=== PATIENT | male | born 1945 | race Caucasian/White ===

== ENCOUNTER 2020-01-18 04:58 | Observation (INO) | payer MEDICARE, SELFPAY ==
[2020-01-18] VITALS (9 sets, daily range): BP systolic 110–152; BP diastolic 71–89; PULSE 60–78; RESP 12–16; TEMP 36.2–36.6; O2SAT 97–98; BMI 33.7; BMI 32.9
--- NOTE | 2020-01-18 05:03 | RAD_ITS ---
STUDY: X-RAY CHEST REASON FOR EXAM: Male, 74 years old. PT STATES NOT FEELING WELL SINCE YESTERDAY BUT WOKE UP AT 0400 TODAY SWEATING, SOB AND WITH CP TECHNIQUE: Frontal view COMPARISON: 02/03/2016 FINDINGS: Pacemaker leads are in proper position. The lungs are clear and expanded. There is no demonstrated pleural abnormality. Normal size heart. Normal mediastinum and manish. Normal visualized pulmonary arteries. Normal visualized aortic arch and descending thoracic aorta. Normal visualized thoracic spine. Normal visualized ribs, clavicles, and shoulders. There is no demonstrated abnormality of the visualized soft tissue structures of the upper abdomen. RAD/Chest 1 View (Portable) IMPRESSION: Normal x-ray examination of the chest. Electronically Signed: Kendrick Rehman MD at 5:30 EST , Service support ,
--- NOTE | 2020-01-18 05:03 | EKG12_ITS ---
Test Reason : CP Blood Pressure : / mmHG Vent. Rate : 071 BPM Atrial Rate : 071 BPM P-R Int : 296 ms QRS Dur : 152 ms QT Int : 414 ms P-R-T Axes : 057 -53 111 degrees QTc Int : 449 ms Atrial-paced rhythm with prolonged AV conduction Left axis deviation Non-specific intra-ventricular conduction block Abnormal ECG Confirmed by KAYCEE GARCIA, JEISON ([id number]), purchase request editor JANET MARCELINO ([id number]) on 01/18/2020 1:11:45 PM Referred By: RACHEL Confirmed By:NELY BENOIT MD
--- NOTE | 2020-01-18 05:06 | ED.DCSUM_ITS ---
History of Present Illness Chief Complaint: Chest Pain Informant: Patient Onset: Today Context: Gradual Onset Timing: Continuous Current Severity: Moderate Maximum Severity: Moderate Narrative: The patient is a 74-year-old male with medical history significant for atrial fibrillation, coronary vascular disease with 1 stent, AICD pacemaker implantation that presents to the emergency department with chest pain and shortness of breath. Patient states that the symptoms began yesterday. He states he just did not feel well all day. He really did not have chest pain, b ut just states he felt generally fatigued. He states that he woke about 4 in the morning. He was diaphoretic, nauseated and had heaviness in his chest. He states that he also felt short of breath. He did take sublingual nitro which seemed to help his pain, but never fully relieved it. He states his defibrillator has not fired. He denies any fever. He denies any chills. Is not had cough. He denies orthopnea. The patient was recently hospitalized for hyperkalemia, but states that within a day, his potassium had normalized. Prior similar symptoms: Yes Recent Illness/Hospitalization: No Past Medical History - Allergies and Home Meds Allergies/Adverse Reactions: Allergies mercury (elemental) Allergy (Verified 01/18/20 05:02) Other Primary Care Physician: Care Physician,No Primary [Primary Care Provider] - Prior records reviewed: Yes Past Medical History: - - Coronary vascular disease with 1 stent, atrial fibrillation, hypertension, hyperlipidemia Surgical History: angioplasty Smoking Status: Former smoker Review of Systems General: Denies: Chills, Fever, Sweats Eyes: Denies: Visual changes - bilaterally, Diplopia ENT: Denies: Rhinorrhea, Sore throat Cardiovascular: Reports: Chest pain. Denies: Palpitations Respiratory: Reports: Dyspnea. Denies: Cough, Dyspnea on exertion Gastrointestinal: Reports: Nausea. Denies: Abdominal pain, Vomiting, Diarrhea, Melena, Hematochezia Genitourinary: Denies: Dysuria, Hematuria, Frequency Musculoskeletal: Denies: Back pain, Extremity Pain Skin: Denies: Rash, Wounds Neurological: Denies: Headache, Weakness, Numbness Physical Exam Vital Signs/Narrative: Vital Signs Temp Pulse Resp BP Pulse Ox 01/18/20 04:58 97.2 F L 70 15 152/88 H 98 Inital Vital Signs reviewed: Yes General: Well nourished, Well developed, No Acute Distress Head: Normocephalic, Atraumatic Eyes: Perrl, EOMI ENT: Moist mucous membranes, No rhinorrhea Neck: Supple, Nontender Cardiovascular: Regular rate, Regular rhythm, No murmurs Respiratory: No distress, CTA bilaterally, Chest nontender Abdomen: Soft, Nontender, Nondistended, Normal bowel sounds Back: Nontender, Normal Inspection Extremities: Nontender, No edema Skin: Normal color, No rash Neurological: Alert, Oriented x3, Cranial nerves II-XII grossly intact, Normal Strength, Normal Sensation Psychological: Normal affect, Normal Mood Diagnostic/Tx/Re-eval Clinical Impression(s) from Imaging Studies Chest X-Ray 01/18/20 05:03 IMPRESSION: Normal x-ray examination of the chest. Electronically Signed: Kendrick Rehman MD at 5:30 EST , Service support , Abnormal Lab Results 01/18/20 01/18/20 01/18/20 05:05 05:05 05:05 WBC 7.5 RBC 5.07 Hgb 14.6 Hct 44.8 MCV 88.4 MCH 28.8 MCHC 32.6 RDW Std Deviation 42.9 RDW Coeff of Keron 13.2 Plt Count 226 MPV 9.4 Immature Gran % (Auto) 0.500 Neut % (Auto) 51.8 Lymph % (Auto) 33.7 [place] % (Auto) 10.2 H Eos % (Auto) 3.1 Baso % (Auto) 0.7 Absolute Neuts (auto) 3.9 Absolute Lymphs (auto) 2.54 Nucleated RBC % 0 PT 26.1 H INR 2.4 Sodium 140 Potassium 4.3 Chloride 106 Carbon Dioxide 29.0 Anion Gap 5 BUN 23 H Creatinine 1.36 H Estim Creat Clear Calc 56.24 Est GFR (MDRD) Af Amer 66 Est GFR (MDRD) Non-Af 55 L BUN/Creatinine Ratio 16.9 Glucose 118 H Calcium 9.0 Magnesium Troponin I < 0.015 01/18/20 05:05 WBC RBC Hgb Hct MCV MCH MCHC RDW Std Deviation RDW Coeff of Keron Plt Count MPV Immature Gran % (Auto) Neut % (Auto) Lymph % (Auto) [place] % (Auto) Eos % (Auto) Baso % (Auto) Absolute Neuts (auto) Absolute Lymphs (auto) Nucleated RBC % PT INR Sodium Potassium Chloride Carbon Dioxide Anion Gap BUN Creatinine Estim Creat Clear Calc Est GFR (MDRD) Af Amer Est GFR (MDRD) Non-Af BUN/Creatinine Ratio Glucose Calcium Magnesium 1.9 Troponin I - Rhythm Strip Rhythm Strip: Paced Rate: 65 Ectopy: None - EKG Initial EKG Interpretation: Paced, Non-Specific ST Changes Prior: Unchanged - Medical Decision Making Patient presents with generalized malaise, and then chest heaviness that came on rather acutely. He states he was diaphoretic and nauseated. On arrival, he rates the pain is a 5. He was given 1 sublingual nitro. He is basically pain- free at this time. His EKG demonstrates a paced rhythm without evidence of acute ischemia. Chest x-ray shows no significant volume overload. Initial cardiac enzymes are negative. Given the patient's significant cardiac history, I do feel the most prudent plan of care will be observation given his chest pain. He is comfortable with this plan of care. Patient was discussed with the hospitalist. Impression 1. Chest pain 2. History of atrial fibrillation 3. History of cardiovascular disease ED Disposition - Plan for ED Patient: Referrals: Care Physician,No Primary [Primary Care Provider] -
[2020-01-18 05:10] LABS: Absolute Lymphocyte Count 2.54 X10^3/uL (0.83-4.51); Absolute Neutrophil Count 3.9 X10^3/uL (2.0-7.7); Basophil# 0.05 X10^3/uL; Basophil% 0.7 % (0-1); Eosinophil# 0.23 X10^3/uL; Eosinophils% 3.1 % (0-5); Hematocrit 44.8 % (40-54); Hemoglobin 14.6 g/dL (13.0-16.5); Lymphocyte # 2.54 X10^3/ul (4.0); Lymphocyte % 33.7 % (19-41); Mean Corp Hgb Conc 32.6 g/dL (32-36); Mean Corpuscular Hgb 28.8 pg (27.0-32.0); Mean Corpuscular Volume 88.4 fL (80-94); Mean Platelet Vol. 9.4 fl (6.2-12.0); Monocyte# 0.77 X10^3/uL; Monocyte% 10.2 % (0-10); NRBC Flagged by Analyzer 0 % (0-5); Neutrophil # 3.91 X10^3/uL (2.7-7.7); Neutrophil % 51.8 % (47-70); Platelet Count 226 K/mm3 (150-450); RBC Distribution Width CV 13.2 % (11.6-14.6); RBC Distribution Width SD 42.9 fl (35.1-43.9); Red Blood Count 5.07 M/mm3 (4.6-6.2); White Blood Count 7.5 K/mm3 (4.4-11.0)
[2020-01-18] MEDS: Aspirin 81 MG TAB.CHEW 324 MG PO (05:12)
[2020-01-18] MEDS: Nitroglycerin SL (ED/IMG/CATH) 0.4 MG TABLET SUBLINGUAL (05:12)
[2020-01-18 05:19] LABS: International Normalized Ratio 2.4; Prothrombin Time (Protime)PT. 26.1 SECONDS (11.7-14.9)
[2020-01-18 05:27] LABS: Magnesium 1.9 mg/dL (1.6-2.6)
[2020-01-18 05:29] LABS: Anion Gap 5 (5-15); BUN 23 mg/dL (7-18); BUN/Creat Ratio 16.9 RATIO (10-20); Chloride 106 mmol/L (98-107); Creatinine, Serum 1.36 mg/dL (0.70-1.30); EST Glomerular Filtration Rate 55 mL/min (>60); Est Glom Filt Rate - Afr Amer 66 mL/min (>60); Estimated Creatinine Clearance 56.24 ml/min; Glucose 118 mg/dL (74-106); Potassium 4.3 mmol/L (3.5-5.1); Sodium Level 140 mmol/L (136-145)
--- NOTE | 2020-01-18 05:41 | PCM.HP.STD ---
Problem List (1) Chest pain Status: Acute Qualifiers: Chest pain type: unspecified Qualified Code(s): R07.9 - Chest pain, unspecified (2) CAD (coronary artery disease) Status: Chronic Qualifiers: Coronary Disease-Associated Artery/Lesion type: unspecified vessel or lesion type [place] vs. transplanted heart: unspecified whether [place] or transplanted heart Associated angina: angina presence unspecified Qualified Code(s): I25.10 - Atherosclerotic heart disease of [place] coronary artery without angina pectoris (3) History of coronary artery stent placement Status: Chronic (4) Hypertension Status: Chronic Qualifiers: Hypertension type: essential hypertension Qualified Code(s): I10 - Essential (primary) hypertension (5) Hyperlipidemia Status: Chronic Qualifiers: Hyperlipidemia type: unspecified Qualified Code(s): E78.5 - Hyperlipidemia, unspecified (6) Former tobacco use Status: Chronic (7) History of venous thromboembolism Status: Chronic (8) PAF (paroxysmal atrial fibrillation) Status: Chronic (9) Factor V Leiden mutation Status: Chronic (10) Ventricular mural thrombus Status: Chronic History of Present Illness Date of Admission: 01/18/20 Chief Complaint: Chest pain The patient is a 74 y/o M w/ PMHx: Factor V Leiden deficiency, Hx Ventricular thrombus, CKD stage III, CAD s/p PCI x 1 2006, CHF Unclear type s/p pacemaker status, Hx SVT/VT s/p AICD placement, PAF, Obesity, Hypothyroidism who presents to the [facility] ED on 01/18/20 with history of malaise, fatigue the day prior with onset chest heaviness described initially at onset at 8 out of 10 now down to 2 out of 10 upon evaluation with associated at initial onset upon awakening diaphoresis, dyspnea at 4 am with self administration NG without complete improvement prompting ED presentation for evaluation. He denied having his AICD fire and noted the last evaluation was on 01/10/20 with 1 episode of VT otherwise unremarkable. Patient notes that he is normally active, a back and often will shaver although he does state he has been less active recently. Work-up in the ED included T 97.2, heart rate 70, BP 152/80, respiratory rate 16, 98% on room air, unremarkable CBC, INR 2.4, BMP with BUN/creatinine 23/1.36, glucose 118, magnesium 1.9, troponin less than 0.015, chest x-ray with no acute cardiopulmonary findings, EKG paced with nonspecific ST changes. Past Medical History Past Medical History (Chronic Problems): Chronic Problems CAD (coronary artery disease) (Chronic) History of coronary artery stent placement (Chronic) Hypertension (Chronic) Hyperlipidemia (Chronic) Former tobacco use (Chronic) History of venous thromboembolism (Chronic) PAF (paroxysmal atrial fibrillation) (Chronic) Factor V Leiden mutation (Chronic) Ventricular mural thrombus (Chronic) Allergies mercury (elemental) Allergy (Verified 01/18/20 05:02) Other Home Medications: Ambulatory Orders Medication Instructions Recorded Cholecalciferol (Vitamin D3) 1,200 unit PO BID 02/03/16 [Vitamin D3] Clopidogrel Bisulfate [Plavix] 75 mg PO DAILY 02/03/16 Levothyroxine [Synthroid] 100 mcg PO QHS 02/03/16 Lisinopril [Zestril] 20 mg PO BID 02/03/16 Metoprolol Tartrate [Lopressor 50 mg PO QHS 02/03/16 (Beta Kriss)] Multivitamin [Daily Multiple 1 each PO DAILY 02/03/16 Vitamin] [place]-3 Fatty Acids/Fish Oil 1 each PO DAILY 02/03/16 [[place] 3 Fish Oil Softgel] Rosuvastatin Calcium [Crestor] 20 mg PO QHS 02/03/16 Warfarin [Coumadin ([facility])] 4 mg PO SUTUTHSA 02/03/16 Warfarin [Coumadin ([facility])] 6 mg PO MOWEFR 02/03/16 Dofetilide 500 mcg PO BID 01/18/20 Metoprolol Tartrate 25 mg PO BREAKFAST 01/18/20 Surgical History: - - AICD, pacemaker, PCI x1. Psychiatric History: No pertinent psych hx Lives: Spouse/ Significant Other Smoking Status: Former smoker - Patient quit cigarette tobacco usage approximately 30 years prior with prior to this 1 pack/day since he had been in service. Tobacco Use: Non-smoker Alcohol: Occasional Drugs: None - *Family History Maternal History Items: Diabetes Paternal History Items: Cancer - Father with history of pancreatic cancer. Sibling History Items: Cancer - Patient notes that his youngest brother at age 46 secondary to significant metastatic cancer, unclear type. Review of Systems Constitutional: Reports: Malaise, Weakness, Fatigue. Denies: Anorexia, Chills, Fever, Weight Change HEENT: Denies: Head Aches, Sinus Congestion, Sinus Drainage Cardiovascular: Reports: Chest Pain, Chest Pressure. Denies: Chest Tightness, Light Headedness, Orthopnea, Palpitations, Syncope Respiratory: Reports: Shortness of Breath. Denies: Cough, Shortness of breath at rest, Sputum production Gastrointestinal: Denies: Abdominal Pain, Nausea, Vomiting Genitourinary: Denies: Dysuria Musculoskeletal: Reports: Back Pain, Joint Pain. Denies: Joint Tenderness Skin: Denies: Rash, Wounds Neurological: Denies: Numbness, Tingling, Focal weakness Psychiatric: Denies: Anxiety, Depression, Homicidal Ideations, Suicidal Ideations Hematologic/ Lymphatic: Reports: Easy Bruising, Easy Bleeding VTE Information - Inpt Only VTE Present on Admission: No VTE Mechan Device Prophylaxis: SCD's VTE Pharm Prophylaxis ordered?: No Reason prophylaxis not ordered:: Medical Contraindication - We will continue patient Coumadin with INR trending. Patient Problems: Active and Suspected Problems Chest pain (Acute) Subjective: Patient seated upright in the ED bed, mildly fatigued appearance, notes chest pain improving, 2 of 10 currently. Objective: Physical Examination: General: awake, alert, oriented x 3 and cooperative, seated upright in the ED bed, no acute distress, notes chest pain improving, currently 2 out of 10. Skin: normal color, turgor, no icterus, cyanosis. HEENT: AT/NC, EOMI, PERRLA, MMM, no carotid bruits or JVD noted. Lungs: CTA bilaterally, moderate effort, moderate decrease BL bases, no rales, ronchi or wheezing. Heart: Regular rate and rhythm; no gallop, rub audible, left upper chest device. Abdomen: soft, NTTP, ND, normal BS, no HSM. Extremities: no cyanosis, clubbing, or edema. Neurological: patient awake, alert, oriented x 3; cognitive function intact; pupils equally reactive to light and accomodation; cranial nerves II-XII grossly normal, moving all 4 extremities, no focal deficits, strength mildly global decrease secondary to acute presentation, improving. Psychiatric: affect appears normal, no acute evidence of depressive or anxiety feelings. - Physical Exam Vitals/I&O's: Vital Signs Temp Pulse Resp BP Pulse Ox 97.2 F L 62 15 146/89 H 97 01/18/20 04:58 01/18/20 05:12 01/18/20 04:58 01/18/20 05:12 01/18/20 05:18 Oxygen Delivery Method Room Air Weight: 263 lb 3.711 oz Body Mass Index (BMI) 33.7 Laboratory Results 01/18/20 05:05: WBC 7.5, RBC 5.07, Hgb 14.6, Hct 44.8, MCV 88.4, MCH 28.8, MCHC 32.6, RDW Std Deviation 42.9, RDW Coeff of Keron 13.2, Plt Count 226, MPV 9.4, Immature Gran % (Auto) 0.500, Neut % (Auto) 51.8, Lymph % (Auto) 33.7, [place] % (Auto) 10.2 H, Eos % (Auto) 3.1, Baso % (Auto) 0.7, Absolute Neuts (auto) 3.9, Absolute Lymphs (auto) 2.54, Nucleated RBC % 0 01/18/20 05:05: PT 26.1 H, INR 2.4 01/18/20 05:05: Sodium 140, Potassium 4.3, Chloride 106, Carbon Dioxide 29.0, Anion Gap 5, BUN 23 H, Creatinine 1.36 H, Estim Creat Clear Calc 56.24, Est GFR (MDRD) Af Amer 66, Est GFR (MDRD) Non-Af 55 L, BUN/Creatinine Ratio 16.9, Glucose 118 H, Calcium 9.0, Troponin I < 0.015 01/18/20 05:05: Magnesium 1.9 Current Medications Nitroglycerin (Nitroglycerin Sl (Ed/Img/Cath) 0.4 Mg Tablet) 0.4 mg SUBLINGUAL Q5M PRN PRN Reason: Chest pain Last Admin: 01/18/20 05:12 Dose: 0.4 mg Documented by: Assessment/Plan All Active Problems Chest pain (Acute) The patient is a 74 y/o M w/ PMHx: Factor V Leiden deficiency, Hx Ventricular thrombus, CKD stage III, CAD s/p PCI x 1 2006, CHF Unclear type s/p pacemaker status, Hx SVT/VT s/p AICD placement, PAF, Obesity, Hypothyroidism who presents to the [facility] ED on 01/18/20 with history of malaise, fatigue the day prior with onset chest heaviness. 1. Chest Pain: EKG in ED paced with nonspecific ST changes with no acute evidence of ischemia, CXR w/ no acute cardiopulmonary findings, initial trop less than 0.015. Will admit to PCU, place on a monitored bed to assure no acute myocardial infarction with serial cardiac enzymes and EKGs. If repeat serial cardiac enzyme and EKGs remain unremarkable pursue a.m. cardiac stress testing. If enzymes become elevated or EKG is changed will pursue cardiology consultation magnesium level 1.9. FLP in AM. ASA, NG, morphine. 2. CHF, Unclear type: Will continuje home plavix, coumadin with INR trending, metoprolol, lisinopril, statin therapy. 3. CAD: s/p PCI x 1, will continue home plavix, coumadin with INR trending, metoprolol, lisinopril, statin therapy. 4. Chronic Kidney Disease Stage III: Admission BUN/Cr 23/1.36, baseline renal function noted prior 1.1, repeat BMP in AM. 5. PAF: Will continue home tikosyn, metoprolol, coumadin with INR trending. 6. Hx Ventricular Thrombus: Will continue coumadin with INR trending. 7. Hx Factor V Leiden mutation: Will continue coumadin with INR trending. 8. Hypertension: Continue home regimen including lisinopril, metoprolol with hold parameters, PRN hydralazine. 9. Hyperlipidemia: Continue home statin regimen. AM FLP. 10. Hypothyroidism: Continue home synthroid regimen. 11. DVT prophylaxis: SCDs, coumadin with INR trending. OBSV E&M: 25047 Initial observation care L3
--- NOTE | 2020-01-18 07:10 | EKG12_ITS ---
Test Reason : Blood Pressure : / mmHG Vent. Rate : 063 BPM Atrial Rate : 063 BPM P-R Int : 308 ms QRS Dur : 160 ms QT Int : 456 ms P-R-T Axes : 071 -52 112 degrees QTc Int : 466 ms Atrial-paced rhythm with prolonged AV conduction Left axis deviation Non-specific intra-ventricular conduction block Abnormal ECG Confirmed by YUKO GARCIA, LUANA ([id number]), scientific publications editor JANET MARCELINO ([id number]) on 01/21/2020 2:36:29 PM Referred By: CATINA Confirmed By:LUANA HUNTLEY MD
--- NOTE | 2020-01-18 11:08 | STRESSREP ---
Stress Test Report Date: 01-18-2020 Procedure: Exercise tolerance test/imaging study Indications: Chest pain; CAD; PCI; PAF; ICD; factor V; history of venous thromboembolism Consent: Per the patient Procedure: The patient exercised on a Marco Antonio protocol for 4 minutes completing Stage I and 1 minute of Stage II achieving a peak heart rate of 109 bpm (74% predicted maximal heart rate) with a peak blood pressure 164/72 mmHg and a peak MET capacity of 5 METs. The baseline ECG demonstrated sinus rhythm with a left bundle branch block pattern. The peak exercise ECG demonstrated no obvious ECG changes. There was a rare PVC during recovery. The functional capacity was considered decreased. There was no complaint of chest discomfort during exercise or recovery. The examination was discontinued secondary to dyspnea. Impression: 1. Technically inadequate (percent predicted maximal heart rate less than 85%) exercise tolerance test 2. Peak exercise ECG no obvious ECG changes 3. There was a rare PVC during recovery 4. Nuclear images pending Myocardial perfusion imaging study: Technique: The patient was injected with 14.0 mCi of technetium 99m Cardiolite and subsequently rest SPECT Cardiolite nuclear imaging was obtained in the horizontal long, vertical long, and short axis views. The patient exercised on a Marco Antonio protocol for 4 minutes completing Stage I and 1 minute of Stage II achieving a peak heart rate of 109 bpm (74% predicted maximal heart rate) with a peak blood pressure 164/72 mmHg and a peak MET capacity of 5 METs. The patient was injected with 44.5 mCi of technetium 99m Cardiolite and subsequently stress SPECT Cardiolite nuclear imaging was obtained in the horizontal long, vertical long, and short axis views. A gated Cardiolite study at peak stress was obtained. Interpretation: Rest and stress SPECT Cardiolite nuclear imaging status post realignment and normalization demonstrates the appearance of diminished absence of myocardial perfusion/tracer uptake in portions of the mid to distal anterior, anterior apical, mid to distal anteroseptal/inferoseptal, septal apical, basal to distal inferior, inferior apical, and lateral apical segments without significant change between rest and stress. There is diminished end systolic thickening and brightening. The gated Cardiolite study demonstrates diminished myocardial thickening and inward wall motion. The reported LVEF is 21%. Impression: 1. Rest and stress SPECT Cardiolite nuclear imaging demonstrate card perfusion changes appearing compatible with an area of extensive myocardial injury/infarction with no myocardial perfusion changes consider diagnostic for associated stress-induced myocardial ischemia. 2. The gated Cardiolite study reports an LVEF of 21%. This note was generated with [employer] software. It may contain incorrect words, spelling, and punctuation that were not noted in checking the note before signing.
--- NOTE | 2020-01-18 11:58 | DCINST_ITS ---
- Discharge Diagnoses Current Active Problems: Current Active and Chronic Problems Chest pain (Acute) CAD (coronary artery disease) (Chronic) History of coronary artery stent placement (Chronic) Hypertension (Chronic) Hyperlipidemia (Chronic) Former tobacco use (Chronic) History of venous thromboembolism (Chronic) PAF (paroxysmal atrial fibrillation) (Chronic) Factor V Leiden mutation (Chronic) Ventricular mural thrombus (Chronic) You will use the following diet at home:: No restrictions Your food should be the consistency of: Regular Your liquids should be the consistency of: Regular/Thin Discharge Activity: Return to Normal Activity Weight Bearing Status: Full weight bearing Allergies/Adverse Reactions: Allergies mercury (elemental) Allergy (Verified 01/18/20 05:02) Other Medications to take at Discharge Cholecalciferol (Vitamin D3) [Vitamin D3] 1,200 unit PO BID 02/03/16 Clopidogrel Bisulfate [Plavix] 75 mg PO MOWEFR 02/03/16 Levothyroxine [Synthroid] 100 mcg PO QHS 02/03/16 Metoprolol Tartrate [Lopressor (beta erica)] 50 mg PO QHS 02/03/16 Multivitamin [Daily Multiple Vitamin] 1 each PO DAILY 02/03/16 [place]-3 Fatty Acids/Fish Oil [[place] 3 Fish Oil Softgel] 1 each PO DAILY 02/03/16 Rosuvastatin Calcium [Crestor] 20 mg PO QHS 02/03/16 Warfarin [Coumadin] 4 mg PO SUTUTHSA 02/03/16 Warfarin [Coumadin] 6 mg PO MOWEFR 02/03/16 Dofetilide 500 mcg PO BID 01/18/20 Lisinopril [Prinivil] 10 mg PO BREAKFAST 01/18/20 Lisinopril [Zestril] 20 mg PO QHS 01/18/20 Metoprolol Tartrate 25 mg PO BREAKFAST 01/18/20 Primary Care Physician: Care Physician,No Primary [Primary Care Provider] - Please follow up with your Primary Care Physician in: as scheduled or in 2 weeks Test Results: Test results from this visit will be discussed in further detail at your follow- up appointment, if applicable.
--- NOTE | 2020-01-18 14:11 | PCM.DC.SUM ---
Discharge Date and Diagnosis - Problem List Patient Problems: Active and Suspected Problems Chest pain (Acute) Date of Admission: 01/18/20 Date of Discharge: 01/18/20 - Primary Discharge Diagnosis Acute Problems: Active Problems #1 musculoskeletal chest pain #2 coronary artery disease #3 Essential hypertension #4 hyperlipidemia - Secondary Discharge Diagnosis Chronic Problems: Chronic Problems CAD (coronary artery disease) (Chronic) History of coronary artery stent placement (Chronic) Hypertension (Chronic) Hyperlipidemia (Chronic) Former tobacco use (Chronic) History of venous thromboembolism (Chronic) PAF (paroxysmal atrial fibrillation) (Chronic) Factor V Leiden mutation (Chronic) Ventricular mural thrombus (Chronic) Hospital Course and Treatment Imaging Results: 01/18/20 08:04 Nuclear Stress Test - Treadmil [NM] Routine Operations: None Procedures: Nuclear stress test Summary of Care Provided: The patient is a 74 year old M who was seen in the emergency room at [facility] with a chief complaint of precordial chest pain. Patient had a past history of coronary artery disease and had had a coronary artery stent placed in the past. Work-up in the emergency room included a chest x-ray which did not show any abnormalities, patient's troponin was obtained and this was normal, patient is EKG showed a paced rhythm. Patient stated that his chest discomfort was relieved with use of nitroglycerin at home. Patient was placed into observation status on PCU, cardiac enzymes were cycled and these remain normal, patient underwent an exercise nuclear stress test on 01/18/2020 which was negative for reversible ischemic changes although the patient did not attain his target heart rate. Patient had refused to take a pharmacological stress test. On 01/18/2020, patient was seen and examined: On examination he appeared in good health and spirits. Vital signs as documented. Skin warm and dry and without overt rashes. Neck without JVD, neck was supple, trachea midline, thyroid was normal. Lungs clear bilaterally, normal air movement was noted. Heart exam notable for regular rhythm, normal sounds and absence of murmurs, rubs or gallops. Abdomen unremarkable and without evidence of organomegaly, masses, or abdominal aortic enlargement. Bowel sounds are present, abdomen is not distended. Extremities nonedematous, no cyanosis was noted, no clubbing was noted. Neuro: Cranial nerves II through XII are grossly intact, no focal motor deficits were noted, sensation to light touch and pinprick intact, motor exam 5/5 throughout. Psych: Patient is alert and oriented x3, he does not appear anxious or depressed, he does not appear agitated. On 01/18/2020, I talked at length with the patient, I told him that his stress test was suboptimal due to the fact that he did not attain a target heart rate. I had called cardiopulmonary and discussed the test with them, they stated that the patient was too short of breath to continuing the test had to be stopped for that reason. Patient has been instructed that if he gets more chest pain that he may have to come in to the hospital for reevaluation and may have to undergo a cardiac catheterization. Patient is to follow-up with his american sign language interpreter in forepart rounder. Patient was discharged home in stable condition on 01/18/2020 Patient Problems: Active and Suspected Problems Chest pain (Acute) - Physical Exam Vitals/I&O's: Vital Signs Temp Pulse Resp BP Pulse Ox 97.5 F L 68 16 118/71 97 01/18/20 08:38 01/18/20 11:44 01/18/20 08:38 01/18/20 08:38 01/18/20 08:38 Oxygen Delivery Method Room Air Weight: 116.3 kg Body Mass Index (BMI) 32.9 Laboratory Results 01/18/20 05:05: WBC 7.5, RBC 5.07, Hgb 14.6, Hct 44.8, MCV 88.4, MCH 28.8, MCHC 32.6, RDW Std Deviation 42.9, RDW Coeff of Keron 13.2, Plt Count 226, MPV 9.4, Immature Gran % (Auto) 0.500, Neut % (Auto) 51.8, Lymph % (Auto) 33.7, Humphreys % (Auto) 10.2 H, Eos % (Auto) 3.1, Baso % (Auto) 0.7, Absolute Neuts (auto) 3.9, Absolute Lymphs (auto) 2.54, Nucleated RBC % 0 01/18/20 05:05: PT 26.1 H, INR 2.4 01/18/20 05:05: Sodium 140, Potassium 4.3, Chloride 106, Carbon Dioxide 29.0, Anion Gap 5, BUN 23 H, Creatinine 1.36 H, Estim Creat Clear Calc 56.24, Est GFR (MDRD) Af Amer 66, Est GFR (MDRD) Non-Af 55 L, BUN/Creatinine Ratio 16.9, Glucose 118 H, Calcium 9.0, Troponin I < 0.015 01/18/20 05:05: Magnesium 1.9 01/18/20 08:27: Troponin I 0.020 01/18/20 11:20: Troponin I < 0.015 Discharge Activity: Return to Normal Activity Weight Bearing Status: Full weight bearing Home Medications: Medications to take at Discharge Cholecalciferol (Vitamin D3) [Vitamin D3] 1,200 unit PO BID 02/03/16 Clopidogrel Bisulfate [Plavix] 75 mg PO MOWEFR 02/03/16 Levothyroxine [Synthroid] 100 mcg PO QHS 02/03/16 Metoprolol Tartrate [Lopressor (beta erica)] 50 mg PO QHS 02/03/16 Multivitamin [Daily Multiple Vitamin] 1 each PO DAILY 02/03/16 [place]-3 Fatty Acids/Fish Oil [[place] 3 Fish Oil Softgel] 1 each PO DAILY 02/03/16 Rosuvastatin Calcium [Crestor] 20 mg PO QHS 02/03/16 Warfarin [Coumadin] 4 mg PO SUTUTHSA 02/03/16 Warfarin [Coumadin] 6 mg PO MOWEFR 02/03/16 Dofetilide 500 mcg PO BID 01/18/20 Lisinopril [Prinivil] 10 mg PO BREAKFAST 01/18/20 Lisinopril [Zestril] 20 mg PO QHS 01/18/20 Metoprolol Tartrate 25 mg PO BREAKFAST 01/18/20 Primary Care Physician: Care Physician,No Primary [Primary Care Provider] - Please follow up with your Primary Care Physician in: as scheduled or in 2 weeks Disposition: Home Minutes spent on discharge:: 32 Patient Condition:: Stable Medical Necessity - Tobacco Use Smoking Status: Former smoker Tobacco Use: Non-smoker Meaningful Use Info Meaningful Use Diagnoses (Choose all that apply): None applicable OBSV E&M: 16008 Observ/hosp same date L3
--- NOTE | 2020-01-18 15:03 | NURSING ---
Read and Reviewed SN documentation
== END 2020-01-18 13:00 | disposition home or self-care (01) ==
LOC: ED 05:44 → PCU 06:02
PROVIDERS: Admitting Provider Family Medicine; Emergency Provider Emergency Medicine; Visit Provider Internal Medicine
DX: R07.89 Other chest pain (principal); I25.10 Atherosclerotic heart disease of native coronary artery without angina pectoris; R06.02 Shortness of breath; I13.0 Hypertensive heart and chronic kidney disease with heart failure and stage 1 through stage 4 chronic kidney disease, or unspecified chronic kidney disease; E78.5 Hyperlipidemia, unspecified; I48.0 Paroxysmal atrial fibrillation; N18.30 Chronic kidney disease, stage 3 unspecified; I50.9 Heart failure, unspecified; E66.9 Obesity, unspecified; E03.9 Hypothyroidism, unspecified; D68.51 Activated protein C resistance; Z87.891 Personal history of nicotine dependence; Z95.5 Presence of coronary angioplasty implant and graft; Z95.810 Presence of automatic (implantable) cardiac defibrillator; Z79.899 Other long term (current) drug therapy; Z79.02 Long term (current) use of antithrombotics/antiplatelets; Z79.01 Long term (current) use of anticoagulants; Z86.718 Personal history of other venous thrombosis and embolism; Z68.32 Body mass index [BMI] 32.0-32.9, adult
CPT/HCPCS: 36415; 71045; 78452; 80048; 83735; 84484; 85025; 85610; 93005; 93017; 99218; 99285; A9500; A4216; G0378; J2405; J2785

== ENCOUNTER 2022-01-12 09:12 | Emergency (ER) | payer OTHER, SELFPAY ==
[2022-01-12 09:13] VITALS: BP 126/78; PULSE 66; RESP 14; TEMP 36.3; O2SAT 95; BMI 32.1
--- NOTE | 2022-01-12 09:16 | EX.ED.DYSGE1 ---
HPI History of Present Illness Chief Complaint: Complaint Narrative Narrative: 76-year-old male here with concern for hematuria. Notes 2 episodes of fady bloody urine. Painless hematuria. States symptoms are intermittent, severe without alleviating factors. States been compliant with warfarin. States he is typically between 2 and 3. States he almost never has to change his warfarin dose. Denies any frequency urgency dysuria. Denies any lesions of the penis testicular pain. Denies abdominal pain. Denies any urinary tension Old chart reviewed: Currently on warfarin and Plavix secondary to A. fib Additional history of hypertension, hyperlipidemia, CAD status post stent, factor V Leiden [facility] Home Medications cholecalciferol (vitamin D3) 25 mcg (1,000 unit) chewable tablet (Vitamin D3) 1,200 unit PO BID 02/03/16 [History Last Taken Unknown] clopidogrel 75 mg tablet 75 mg PO MOWEFR 02/03/16 [History Last Taken Unknown] levothyroxine 50 mcg tablet 100 mcg PO QHS 02/03/16 [History Last Taken Unknown] metoprolol tartrate 25 mg tablet 50 mg PO QHS 02/03/16 [History Last Taken Unknown] multivitamin (Daily Multiple tablet) 1 ea PO DAILY 02/03/16 [History Last Taken Unknown] omega-3 fatty acids-fish oil 684 mg-1,200 mg capsule,delayed release (One-Per-Day [place]-3) 1 ea PO DAILY 02/03/16 [History Last Taken Unknown] rosuvastatin 20 mg tablet (Crestor) 20 mg PO QHS 02/03/16 [History Last Taken Unknown] warfarin 4 mg tablet (Jantoven) 4 mg PO SUTUTHSA 02/03/16 [History Last Taken Unknown] warfarin 6 mg tablet (Jantoven) 6 mg PO MOWEFR 02/03/16 [History Last Taken Unknown] dofetilide 500 mcg capsule 500 mcg PO BID 01/18/20 [History Last Taken Unknown] lisinopril 10 mg tablet 10 mg PO BREAKFAST 01/18/20 [History Last Taken Unknown] lisinopril 20 mg tablet 20 mg PO QHS 01/18/20 [History Last Taken Unknown] metoprolol tartrate 25 mg tablet 25 mg PO BREAKFAST 01/18/20 [History Last Taken Unknown] nitrofurantoin macrocrystal 100 mg capsule 100 mg PO BID 7 days #14 caps 01/12/22 [Rx Last Taken Unknown] Allergy/AdvReac Type Severity Reaction Status Date / Time mercury (elemental) Allergy Other Verified 01/12/22 09:15 Social History Smoking Status: Former smoker ROS ROS ED ROS Narrative Constitutional: Denies fever HEENT: Denies sore throat Neck: Denies neck pain Cardiovascular: Denies chest pain, syncope Respiratory: Denies shortness of breath GI: Denies nausea vomiting or abdominal pain : Denies changes in urinary habits, endorses hematuria Musculoskeletal: Denies muscle or joint pain Neurologic: Denies numbness weakness or loss of sensation Skin denies rash EXAM Physical Exam Narrative Exam Narrative: Nursing triage notes reviewed, Vital signs reviewed Constitutional: please see mdm HENT: MMM Eyes: Pupils equal round and reactive to light, Extraocular muscles intact Neck: No stridor, no JVD, full neck ROM Lungs: Clear to auscultation, No wheezing or rales. No increased work of breathing, no conversational dyspnea, no accessory muscle use, no nasal flaring. No respiratory distress noted Heart: Regular rate and rhythm, No murmurs, No rubs and No gallops, 2+ distal pulses (radial, femoral, posterior tibial) in all extremities Abdomen: Soft, there is no tenderness, rigidity, rebound or guarding, no obvious peritoneal signs, no palpable pulsatile abdominal masses, no auscultated abdominal bruit. Umbilical hernia noted this freely reducible and nontender to palpation with no overlying skin changes : No CVAT, normal-appearing genitalia, no blood at urethral meatus, no lesions, no testicular tenderness, positive cremasteric reflex Extremities: No edema Neuro: No focal neurological deficits, cranial nerves II through XII intact, 5/5 strength in all extremities. Intact sensation to light touch in all extremities, 2+ reflexes bilateral patella dens. Normal gait. No ataxia. Skin: No rash or lesions noted Const Vital Signs: 01/12/22 09:13 01/12/22 13:09 Temperature 97.3 F L Temperature Source Temporal Pulse Rate 66 60 Respiratory Rate 14 16 Blood Pressure 126/78 H 96/69 Blood Pressure Mean 94 78 Pulse Ox 95 95 Oxygen Delivery Method Room Air Room Air MDM MDM MDM Narrative Medical decision making narrative: 76-year-old male here with painless hematuria in the setting of warfarin. Exam unremarkable. Obtain urine studies to rule out infection. Obtained blood counts and INR to rule out hypercoagulable state or anemia. Labs with a mildly supratherapeutic INR 3.2. No significant anemia. Patient did have some mild renal insufficiency but did not have an acute kidney injury. Bladder scan without urinary retention. Urine noted to have evidence of infection. Will give prophylactic Keflex. No emergent life-threatening etiologies could be ascertained. Gave the patient close urology follow-up for painless hematuria concern for bladder abnormalities including cancer. Told patient to hold his very next dose of warfarin but then to continue with his regiment as prescribed. Told to follow-up with his INR clinic visit next January told patient to return if he developed any urinary tension, lightheadedness, weakness, fatigue, increasing bloody urine. Lab Data Labs: Laboratory Results - last 24 hr 01/12/22 01/12/22 01/12/22 09:43 09:43 09:43 WBC 7.4 RBC 5.51 Hgb 16.2 Hct 47.4 MCV 86.0 MCH 29.4 MCHC 34.2 RDW Std Deviation 45.8 H RDW Coeff of Keron 14.6 Plt Count 232 MPV 9.3 PT 32.3 H INR 3.2 Sodium 139 Potassium 4.8 Chloride 110 H Carbon Dioxide 22.0 Anion Gap 7 BUN 29 H Creatinine 1.58 H Estim Creat Clear Calc 46.97 Est GFR (MDRD) Af Amer 55 L Est GFR (MDRD) Non-Af 46 L BUN/Creatinine Ratio 18.4 Glucose 131 H Calcium 9.6 Urine Color Urine Clarity Urine pH Ur Specific [place] Urine Protein Urine Glucose (UA) Urine Ketones Urine Occult Blood Urine Nitrite Urine Bilirubin Urine Urobilinogen Ur Leukocyte Esterase Urine RBC Urine WBC Ur Squamous Epith Cells Urine Bacteria Urine Mucus 01/12/22 11:44 WBC RBC Hgb Hct MCV MCH MCHC RDW Std Deviation RDW Coeff of Keron Plt Count MPV PT INR Sodium Potassium Chloride Carbon Dioxide Anion Gap BUN Creatinine Estim Creat Clear Calc Est GFR (MDRD) Af Amer Est GFR (MDRD) Non-Af BUN/Creatinine Ratio Glucose Calcium Urine Color Red Urine Clarity Turbid Urine pH 6.0 Ur Specific [place] 1.020 Urine Protein 500 H Urine Glucose (UA) 1000 H Urine Ketones 5 H Urine Occult Blood 250 H Urine Nitrite Positive H Urine Bilirubin Negative Urine Urobilinogen Normal Ur Leukocyte Esterase 25 H Urine RBC 50-100 SEEN Urine WBC 10-25 SEEN Ur Squamous Epith Cells 0 SEEN Urine Bacteria 4+ Urine Mucus 0 SEEN Discharge Plan Triage Chief Complaint: Complaint ED Provider: Saturnino Crowder Dx/Rx/DC Orders Clinical Impression: UTI (urinary tract infection), Hematuria, Supratherapeutic INR Instructions: Cystoscopy, ED Hematuria Prescriptions: New nitrofurantoin macrocrystal 100 mg capsule 100 mg PO BID 7 Days Qty: 14 0RF Rx Instructions: must administer with a meal/food No Action multivitamin [Daily Multiple] 1 EACH tablet 1 ea PO DAILY clopidogrel 75 MG tablet 75 mg PO MOWEFR warfarin [Jantoven] 4 MG tablet 4 mg PO SUTUTHSA Label Comments: warfarin [Jantoven] 6 MG tablet 6 mg PO MOWEFR Label Comments: levothyroxine 50 MCG tablet 100 mcg PO QHS rosuvastatin [Crestor] 20 MG tablet 20 mg PO QHS metoprolol tartrate 25 MG tablet 50 mg PO QHS Label Comments: PM omega-3 fatty acids-fish oil [One-Per-Day [place]-3] 1 EACH capsule,delayed release(DR/EC) 1 ea PO DAILY cholecalciferol (vitamin D3) [Vitamin D3] 1,000 UNIT tablet,chewable 1,200 unit PO BID dofetilide 500 MCG capsule 500 mcg PO BID metoprolol tartrate 25 MG tablet 25 mg PO BREAKFAST lisinopril 20 MG tablet 20 mg PO QHS lisinopril 10 MG tablet 10 mg PO BREAKFAST Primary Care Provider: [facility] Referrals: Jin Ryder MD [[facility] Staff - Active Staff] - Care Physician,No Primary [Non-Staff] - Activity Restrictions/Additional Instructions: Please hold next dose of warfarin. Please continue to take warfarin as prescribed starting tomorrow on 01/13/2022. Please follow-up with urology at the next billable appointment for further outpatient evaluation. Please take antibiotics as prescribed. Please return if develop vomiting, lightheadedness, weakness, worsening blood in your urine Disposition Disposition: Home, Self Care Discharge Date/Time: 01/12/22 13:17
[2022-01-12 09:55] LABS: Hematocrit 47.4 % (40-54); Hemoglobin 16.2 g/dL (13.0-16.5); Mean Corp Hgb Conc 34.2 g/dL (32-36); Mean Corpuscular Hgb 29.4 pg (27.0-32.0); Mean Platelet Vol. 9.3 fl (6.2-12.0); Platelet Count 232 K/mm3 (150-450); RBC Distribution Width CV 14.6 % (11.6-14.6); RBC Distribution Width SD 45.8 fl (35.1-43.9); Red Blood Count 5.51 M/mm3 (4.6-6.2); White Blood Count 7.4 K/mm3 (4.4-11.0)
[2022-01-12 10:01] LABS: International Normalized Ratio 3.2; Prothrombin Time (Protime)PT. 32.3 SECONDS (11.7-14.9)
[2022-01-12 10:04] LABS: Anion Gap 7 (5-15); BUN 29 mg/dL (7-18); BUN/Creat Ratio 18.4 RATIO (10-20); Calcium,Total 9.6 mg/dL (8.5-10.1); Chloride 110 mmol/L (98-107); Creatinine, Serum 1.58 mg/dL (0.70-1.30); EST Glomerular Filtration Rate 46 mL/min (>60); Est Glom Filt Rate - Afr Amer 55 mL/min (>60); Estimated Creatinine Clearance 46.97 ml/min; Glucose 131 mg/dL (74-106); Potassium 4.8 mmol/L (3.5-5.1); Sodium Level 139 mmol/L (136-145)
[2022-01-12 11:55] LABS: Mucous, Urine 0 SEEN /hpf (<or=2+); Squamous Epithelial Cells - UA 0 SEEN /hpf (0-5)
[2022-01-12 12:04] LABS: Color, Urine Red (Yellow); Glucose, Dipstick 1000 mg/dl (Normal); Ketone-Dipstick 5 mg/dl (Negative); Leukocyte Esterase-Dipstick 25 /ul (Negative); Nitrite-Dipstick Positive (Negative); Occult Blood-Urine 250 /ul (Negative); Protein-Dipstick 500 mg/dl (Negative); Urine Bilirubin Dipstick Negative (Negative); Urine Clarity Turbid (Clear); Urine Urobilinogen Normal (Normal)
[2022-01-12 12:05] LABS: White Blood Cells 10-25 SEEN /hpf (0-5)
[2022-01-12 12:06] LABS: Bacteria 4+ /hpf (None Seen); Red Blood Cells-Urine 50-100 SEEN /hpf (0-5)
[2022-01-12] MEDS: Nitrofurantoin Macrocrystals 100 MG Capsule PO (13:07)
[2022-01-12 13:09] VITALS: BP 96/69; PULSE 60; RESP 16; O2SAT 95
== END 2022-01-12 13:17 | disposition home or self-care (01) ==
PROVIDERS: Emergency Provider Emergency Medicine; Visit Provider Emergency Medicine
DX: N39.0 Urinary tract infection, site not specified (principal); I48.91 Unspecified atrial fibrillation; E78.5 Hyperlipidemia, unspecified; R79.1 Abnormal coagulation profile; I25.10 Atherosclerotic heart disease of native coronary artery without angina pectoris; R31.9 Hematuria, unspecified; I10 Essential (primary) hypertension; Z79.01 Long term (current) use of anticoagulants; Z95.5 Presence of coronary angioplasty implant and graft; Z87.891 Personal history of nicotine dependence
CPT/HCPCS: 80048; 81001; 85027; 85610; 99283

== ENCOUNTER → 2022-01-22 | Outpatient (CLI) | payer MEDICARE, SELFPAY ==
--- NOTE | 2022-01-22 17:17 | CT_ITS ---
STUDY: CT ABDOMEN AND PELVIS WITH AND WITHOUT CONTRAST REASON FOR EXAM: Male, 76 years old. Gross hematuria.PRIOR APPENDECTOMY RADIATION DOSAGE (If Supplied By Facility): CTDIvol = ( 22.59 ) mGy, DLP = ( 4056.82 ) mGycm TECHNIQUE: Transaxial images were obtained from the dome of the diaphragm to the symphysis pubis without oral contrast. IV 100mL Isovue-370 was administered. Sagittal and coronal images were reconstructed. Individualized dose optimization techniques were used for this CT. COMPARISON: None. FINDINGS: The visualized lung bases are unremarkable. The visualized portions of the heart are within normal limits. Normal liver. Normal gallbladder and extrahepatic biliary system. Normal spleen. Normal pancreas. Normal bilateral adrenal glands. Multiple bilateral renal cysts, the largest measures 3.2 cm is in the left kidney. Normal visualized stomach. Normal small intestine. There are multiple colonic diverticula consistent with diverticulosis. There is non-visualization of the appendix. There is diffuse atherosclerotic calcification of the abdominal aorta, without a demonstrated aneurysm. Normal inferior vena cava. Normal retroperitoneum. Normal urinary bladder. Normal abdominal wall. Normal osseous structures. CT/CT Abd/Pelvis W/WO Contrast IMPRESSION: Multiple bilateral renal cysts, the largest measures 3.2 cm is in the left kidney. There is no evidence kidney stones or renal neoplasm. Sigmoid diverticulosis. Electronically Signed: Jennifer Russo MD at 5:17 EST ,
== END | disposition home or self-care (01) ==
LOC: CT 17:14
PROVIDERS: Referring Provider Urology; Visit Provider Urology
DX: R31.0 Gross hematuria (principal)
CPT/HCPCS: 74178; Q9967

== ENCOUNTER 2022-02-02 16:17 | Outpatient (CLI) | payer MEDICARE, SELFPAY ==
--- NOTE | 2022-02-02 09:51 | CYSPIN_PTH ---
PATIENT: RENUKA NEFF LOC: [facility] U#:[id number] AGE/SX: 76/M ROOM: RE02/02/[address]: Dr. Jin Ryder MD : 1945 BED: DIS: 02/02/2022 SPEC #: [id number] RECD: 02/03/22 06:54 STATUS: ELISSA RESabra #: [id number] JOSEFINA: 02/02/22 09:[address]: Jin Ryder DEPT: CYTOLOGY RECD BY: Vani Alejandre ENTERED: 02/03/22 06:54 SP TYPE: CYSPIN FL OTHR DR: [facility] Tissues: Urine Procedures: Pap Stain (control) Special Stain Group II Cytospin Fluid HEADER OPERATION: Not noted PRE-OP DIAGNOSIS: BPH with lower urinary tract symptoms TISSUE SUBMITTED: Urine for cytology DIAGNOSIS CYTOLOGY Urine for cytology (cytospin): Negative for high-grade urothelial carcinoma (PAGUC), (Awilda System Category II). Mild acute inflammation. See comment. SJ:milli 02/03/2022 COMMENT Red blood cells are noted. Correlation with clinical findings and appropriate follow up are necessary. The Awilda System for urine cytology diagnostic categorization was used in the evaluation of this case. CYTOLOGY STUDY Slides are reviewed. CYTOLOGY GROSS Received is 100 ml of dark yellow cloudy fluid labeled with the patient's name and and designated per the requisition as urine. Submitted for cytology preparation. / milli 02/02/2022 TC:5 CPT: 87709
[2022-02-02 16:58] LABS: Cytology, Body Fluid / CSF SEE PATHOLOGY REPORT
== END 2022-02-02 23:59 | disposition home or self-care (01) ==
LOC: LABSPEC 16:18
PROVIDERS: Visit Provider Urology
DX: N40.1 Benign prostatic hyperplasia with lower urinary tract symptoms (principal)
CPT/HCPCS: 88108; 88313

== ENCOUNTER 2023-11-10 14:57 | Emergency (ER) | payer MEDICARE, SELFPAY ==
[2023-11-10 14:57] VITALS: BP 118/90; PULSE 90; RESP 18; TEMP 36.2; O2SAT 94; BMI 34.4
--- NOTE | 2023-11-10 15:17 | VDLE_ITS ---
Reason For Study: Left leg pain RIGHT LEFT CFV is compressible, spontaneous, phasic, GSV is normal. competent and demonstrates normal CFV is compressible, spontaneous, phasic, augmentation. competent, and demonstrates normal Procedure augmentation. This is a venous duplex using B-mode, color FV is compressible, spontaneous, phasic, flow and spectral Doppler. competent and demonstrates normal Exam performed portable in ED. augmentation. A preliminary report was called and/or faxed POP V is compressible, spontaneous, phasic, to Magui BRAGG. competent and demonstrates normal augmentation. T/P Trunk is compressible. PTV is compressible. Acute deep vein thrombosis is noted in the Per V. It is dilated and NONCOMPRESSIBLE. VL/Venous Duplex US, Unilateral Interpretation Summary Acute deep vein thrombosis is noted in the left peroneal vein. Ordering Physician: Choco Rodriguez Referring Physician: [facility] Performed By: Tiffany Rivas RVT
--- NOTE | 2023-11-10 15:18 | EDS_ITS ---
HPI History of Present Illness Chief Complaint: Lower Extremity Injury Informant: patient and spouse/S.O. Narrative Narrative: 77-year-old male with 3 days gradual onset pain in the left calf with swelling distally in the left lower extremity. No chest pain or shortness of breath or syncope. He states 5-6 days ago, he had a cardiac device that was changed at [facility]. He states they had to go into both groins which are doing well. He was on warfarin prior to this because of a history of a blood clot, so he stopped the warfarin prior to the procedure and restarted it the day after. When he called today he was advised to come to the ER emergently for an ultrasound to see if he has a blood clot in his leg. Patient states he has been resting as directed lately, which she states has been challenging for him. [facility] Home Medications ?Medication ?Instructions ?Recorded ?Last Taken ?Type cholecalciferol (vitamin D3) 25 1,200 unit PO BID 02/03/16 Unknown History mcg (1,000 unit) chewable tablet (Vitamin D3) clopidogrel 75 mg tablet 75 mg PO MOWEFR 02/03/16 Unknown History levothyroxine 50 mcg tablet 100 mcg PO QHS 02/03/16 Unknown History metoprolol tartrate 25 mg tablet 50 mg PO QHS 02/03/16 Unknown History multivitamin (Daily Multiple 1 ea PO DAILY 02/03/16 Unknown History tablet) omega-3 fatty acids-fish oil 684 1 ea PO DAILY 02/03/16 Unknown History mg-1,200 mg capsule,delayed release (One-Per-Day [place]-3) rosuvastatin 20 mg tablet (Crestor) 20 mg PO QHS 02/03/16 Unknown History warfarin 4 mg tablet (Jantoven) 4 mg PO SUTUTHSA 02/03/16 Unknown History warfarin 6 mg tablet (Jantoven) 6 mg PO MOWEFR 02/03/16 Unknown History dofetilide 500 mcg capsule 500 mcg PO BID 01/18/20 Unknown History lisinopril 10 mg tablet 10 mg PO BREAKFAST 01/18/20 Unknown History lisinopril 20 mg tablet 20 mg PO QHS 01/18/20 Unknown History metoprolol tartrate 25 mg tablet 25 mg PO BREAKFAST 01/18/20 Unknown History nitrofurantoin macrocrystal 100 mg 100 mg PO BID 7 days #14 caps 01/12/22 Unknown Rx capsule Allergy/AdvReac Type Severity Reaction Status Date / Time mercury (elemental) Allergy Other Verified 11/10/23 15:00 Social History Smoking Status: Former smoker ROS ROS ED Constitutional Constitutional ED: Denies chills or fever(s) Cardiovascular Cardiovascular: Denies chest pain or syncope Respiratory/Chest Respiratory/Chest: Denies dyspnea Musculoskeletal Musculoskeletal: Reports extremity pain and other Details: LLE edema ; Denies neck pain Integumentary Reports wounds; Denies Abrasions or rash Neurologic Neurologic: Denies paresthesias or weakness EXAM Physical Exam Const Vital Signs: 11/10/23 14:57 Temperature 97.1 F L Temperature Source Temporal Pulse Rate 90 Respiratory Rate 18 Blood Pressure 118/90 H Blood Pressure Mean 99 Pulse Ox 94 Oxygen Delivery Method Room Air Positive well nourished and well developed General Appearance ED: well developed and NAD Neck full ROM and supple Back/Spine normal ROM and normal to inspection Extremity Extremity Narrative: Varicose veins in both lower extremities. None erythematous or tender, but he does have tenderness in the medial left calf and there is edema distal to this 1+ whereas the right lower extremity is not edematous. He has intact dorsalis pedis pulses in both lower extremities. All compartments are soft and nondistended. Neuro oriented x3, no focal motor deficits and no sensory deficits noted Sensorium / Orientation: alert Psych mental status grossly normal and thought process normal Skin Skin Narrative: Postoperative wound left upper chest wall is without signs of erythema, d ehiscence, discharge, abscess, cellulitis, tenderness. Rashes: no rashes MDM MDM MDM Narrative Medical decision making narrative: Venous duplex ultrasound of the left lower extremity was obtained I reviewed the images and the report which I agree with, it is positive for DVT in the peroneal vein. Patient is a little subtherapeutic on his INR some giving him an injection of Lovenox advising that he continue warfarin and follow-up closely. Lab Data Attestation: I reviewed the patient's lab results. Labs: Laboratory Results - last 24 hr 11/10/23 15:35 PT 17.9 H INR 1.5 Discharge Plan Triage Chief Complaint: Lower Extremity Injury ED Provider: Choco Rodriguez Dx/Rx/DC Orders Clinical Impression: Acute deep vein thrombosis (DVT) of left peroneal vein, Warfarin-induced coagulopathy Instructions: DVT Dc Prescriptions: No Action multivitamin [Daily Multiple] 1 EACH tablet 1 ea PO DAILY clopidogrel 75 MG tablet 75 mg PO MOWE warfarin [Jantoven] 4 MG tablet 4 mg PO [facility] Patient Comments: warfarin [Jantoven] 6 MG tablet 6 mg PO MOWE Patient Comments: levothyroxine 50 MCG tablet 100 mcg PO QHS rosuvastatin [Crestor] 20 MG tablet 20 mg PO QHS metoprolol tartrate 25 MG tablet 50 mg PO QHS Patient Comments: PM omega-3 fatty acids-fish oil [One-Per-Day [place]-3] 1 EACH capsule,delayed release(DR/EC) 1 ea PO DAILY cholecalciferol (vitamin D3) [Vitamin D3] 1,000 UNIT tablet,chewable 1,200 unit PO BID dofetilide 500 MCG capsule 500 mcg PO BID metoprolol tartrate 25 MG tablet 25 mg PO BREAKFAST lisinopril 20 MG tablet 20 mg PO QHS lisinopril 10 MG tablet 10 mg PO BREAKFAST nitrofurantoin macrocrystal 100 mg capsule 100 mg PO BID 7 Days Qty: 14 0RF Rx Instructions: must administer with a meal/food [facility] [Primary Care Provider] - As soon as possible Print Language: Citizen [place] Disposition Disposition: Home, Self Care
[2023-11-10 15:52] LABS: International Normalized Ratio 1.5; Prothrombin Time (Protime)PT. 17.9 SECONDS (11.7-14.9)
[2023-11-10 15:57] VITALS: BP 118/90; PULSE 90; RESP 18; TEMP 36.2; O2SAT 94
[2023-11-10] MEDS: Enoxaparin 120 MG/0.8 ML Syringe SC (16:38)
== END 2023-11-10 16:48 | disposition home or self-care (01) ==
PROVIDERS: Emergency Provider Emergency Medicine; Visit Provider Emergency Medicine
DX: I82.452 Acute embolism and thrombosis of left peroneal vein (principal); Z79.01 Long term (current) use of anticoagulants; Z87.891 Personal history of nicotine dependence
CPT/HCPCS: 85610; 93971; 96372; 99282; A4216